=== PATIENT | female | born 1960 | race Caucasian/White ===

== ENCOUNTER 2017-06-04 12:14 | Emergency (ER) | payer BC ==
[~2017-06-04 12:14] MED LIST: CIPRO500 MG PO; DELZICOL400 MG PO; FERROUS SULFAT324 M1 PO; FLAGYL500 MG PO; MULTIPLE VITAMIN PO; PREDNISONE20 MG PO; TYLENOL325 MG PO; ZYRTEC ALLERGY10 M1 PO
--- NOTE | 2017-06-04 14:29 | DIAGNOSTIC IMAGING REPORT ---
PROCEDURE: CT ABD/PELVIS WITH CONTRAST INDICATION: Abdominal pain. Possible hematochezia. The patient on Coumadin (unknown reason). History of ulcerative colitis, appendectomy, and tubal ligation. TECHNIQUE: 125 ml of Isovue 300 were injected intravenously and axial images were obtained of the entire abdomen and pelvis with sagittal and coronal reformations. COMPARISON: Compared CT abdomen pelvis on 01/19/2016. FINDINGS: ABDOMEN: There is mild to moderate increased fluid throughout the colon without wall thickening. There are ingested pill fragments in the stomach, small bowel, and cecum. Small bowel pattern is normal. There is a punctate 1 mm gallstone. Liver, spleen, pancreas, kidneys, and aorta (mild calcified atheromatous changes), are normal. There is mild to moderate degenerate changes of the lower lumbar spine. PELVIS: Uterus and adnexal structures are normal. No evidence of free fluid. ORIF of left proximal femur fracture (metal hardware). IMPRESSION: 1. Mild to moderate fluid throughout the colon with minimal mucosal thickening. Consider infectious or idiopathic colitis. 2. Status post ORIF left femur fracture. 3. There is a punctate 1 mm calcified gallstone. 4. Otherwise negative CT abdomen and pelvis. 5. Findings discussed with SURESH Hughes. All CT scans at this facility use dose modulation, iterative reconstruction, and/or weight-based dosing when appropriate to reduce radiation dose to as low as reasonably achievable.
--- NOTE | 2017-06-04 14:53 | ED CLINICAL REPORT ---
Clinical Report - Physicians/Mid Levels [facility] [address] [place] [address] 06/04/2017 12:15 Patient: ZOILA LARKIN Time Seen: 1220; upon arrival, initial patient contact, initial documentation, patient care assumed. Arrived- By private vehicle. Historian- patient. HISTORY OF PRESENT ILLNESS Chief Complaint: ABDOMINAL PAIN. At its maximum, severity described as severe. When seen in the E.D., severity described as severe. Modifying factors. Not worsened by anything. Not relieved by anything. This started about 3 days ago and is still present. It was abrupt in onset and has been constant. It is described as "pain" and it is described as located in the right upper quadrant and in the upper abdomen. No nausea, loss of appetite, vomiting or diarrhea. No recent travel. Similar symptoms previously: None. ( says the pain is different than when she has colitis flare up, those pains are usually lower in the abdomen and this is up high). Recent medical care: Not recently seen/assessed. REVIEW OF SYSTEMS No constipation, black stools, hematemesis, difficulty with urination or pain with urination. No urinary frequency, bloody stools, fever, chest pain or difficulty breathing. today's bowel movement was darker than normal and she thought it may be blood, not sticky, soft and runny. All systems otherwise negative, except as recorded above. PAST HISTORY See nurses notes. PROBLEMS: Asthma. Ulcerative Colitis. UTI - Urinary Tract Infection. Colitis. --12:29 Nalini Rodriguez R.N. ADDITIONAL SURGERIES: Appendectomy. Fracture Repair. Tonsillectomy. Tubal Ligation. --12:29 Nalini Rodriguez R.N. Deep venous thrombosis. Pulmonary embolism. SOCIAL HISTORY Former smoker. No alcohol use or drug use. No recent travel. Is a local resident. FAMILY HISTORY Negative. ADDITIONAL NOTES The nursing notes have been reviewed with agreement regarding the chief complaint, HPI, ROS, PMH and patient medications and allergies. PHYSICAL EXAM Vital Signs: 06/04/2017 12:15 BP: 115/76. HR: 140. RR: 18. O2 saturation: 99%. Temp: 97.8 F. Pain level now: 05/23. Have been reviewed as abnormal and appear to be correct. Blood pressure normal. Tachycardic. Respiratory rate normal. Temperature normal. Oxygen saturation normal. Appearance: Alert. Oriented X3. No acute distress. Eyes: Pupils equal, round and reactive to light. Eyes normal inspection. Neck: Normal inspection. Neck supple. CVS: Heart rate / rhythm abnormal. Tachycardia (ventricular rate = 136). Heart sounds normal. Pulses normal. Respiratory: No respiratory distress. Breath sounds normal. Chest nontender. Abdomen: Soft. Moderate tenderness in the right upper quadrant. Positive Huitron's sign. No guarding, rebound tenderness or obturator or psoas sign present. Bowel sounds normal. No organomegaly. No mass. Tenderness present. Back: Normal inspection. Rectal: Abnormal rectal exam. Rectal exam nontender. Stool heme negative; hemoccult research associate quality control qc check passed. (POC test reference range: negative). (external hemorrhoids, small, nonthrombosed, no bleeding, nurses in room during rectal exam for chaperones). Skin: Skin warm and dry. Normal skin color. No rash. Normal skin turgor. Extremities: No lower extremity edema. Neuro: Oriented X 3. No motor deficit. No sensory deficit. LABS, X-RAYS, AND EKG Abdominal CT: . IMPRESSION: 1. Mild to moderate fluid throughout the colon with minimal mucosal thickening. Consider infectious or idiopathic colitis. 2. Status post ORIF left femur fracture. 3. There is a punctate 1 mm calcified gallstone. 4. Otherwise negative CT abdomen and pelvis. 5. Findings discussed with SURESH Hughes. All CT scans at this facility use dose modulation, iterative reconstruction, and/or weight-based dosing when appropriate to reduce radiation dose to as low as reasonably achievable. Electronically Final signed by:Kimani Chance MD 06/04/2017 2:22:45 PM. The study was interpreted by the radiologist and discussed with the radiologist. Laboratory Tests: CBC w Diff: (BENNETT: 06/04/2017 12:35) ( MsgRcvd 06/04/2017 12:56) Final results Test Result Flag Units (Reference) WHITE BLOOD COUNT 11.2 K/uL (4.5-11.5) RED BLOOD COUNT 3.92 L M/uL (4.00-5.20) HEMOGLOBIN 11.9 L gm/dL (12.0-16.0) HEMATOCRIT 35.0 L % (36.0-46.0) MEAN CELL VOLUME 89 fL (80-100) MEAN CORPUSCULAR HGB 30 pg (26-34) MEAN CORPUSCULAR HGB CONC 34 g/dL (31-37) RED CELL DISTRIBUTION WIDTH 16.0 H % (11.6-14.8) PLATELET COUNT 251 K/uL (150-400) NEUTROPHIL % 77.5 H % (50-75) LYMPH % 14.5 L % (25-40) MONO % 6.9 % (3-14) EOSINOPHIL % 0.9 % (0-4) BASOPHIL % 0.2 % (0-2) PT with INR: (BENNETT: 06/04/2017 12:35) ( [facility] 06/04/2017 13:19) Final results Test Result Flag Units (Reference) INR 8.3 *H (0.8-1.2) CRITICAL RESULTS CALLEDCalled to [place] 06/04/17 1316Were 2 patient identifiers used? YWas the result read back? YLow Intensity Therapy: INR 1.5-2.0 PT range 18.5-23.1Mod.Intensity Therapy: INR 2.0-3.0 PT range 23.1-31.5High Intensity Therapy: INR 2.5-3.5 PT range 27.4-35.5High Intensity Therapy 2: INR 3.0-4.0 PT range 31.5-39.3 APTT 150 *H SECONDS (24-34) CRITICAL RESULTS CALLEDCalled to [place] 06/04/17 1317Were 2 patient identifiers used? YWas the result read back? Y CMP: (BENNETT: 06/04/2017 12:35) ( [facility] 06/04/2017 13:16) Final results Test Result Flag Units (Reference) GLUCOSE 130 H mg/dL (70-110) BUN 19 H mg/dL (7-18) CREATININE 0.8 mg/dL (0.6-1.3) Estimated GFR >60 mL/min Estimated GFR- >60 mL/min Note: Persistent reduction over 3 months in eGFR<60 mL/min/1.73 m2 defines CKD. Patients with eGFR values>=60 mL/min/1.73 m2 may also have CKD if evidence ofpersistent proteinuria. Additional information may be foundat [email or web address]. SODIUM 136 mmol/L (136-145) POTASSIUM 4.0 mmol/L (3.5-5.1) CHLORIDE 103 mmol/L (98-107) CARBON DIOXIDE 21 mmol/L (21-32) CALCIUM 8.7 mg/dL (8.5-10.1) TOTAL PROTEIN 7.9 g/dL (6.4-8.2) ALBUMIN 3.4 g/dL (3.3-5.0) BILIRUBIN, TOTAL 0.4 mg/dL (0.0-1.0) ALKALINE PHOSPHATASE 137 H U/L (46-116) AST (SGOT) 18 U/L (15-37) ALT (SGPT) 34 U/L (12-78) LIPASE 155 U/L (73-393) AMYLASE 48 U/L (25-115) . PROGRESS AND PROCEDURES Course of Care: 1400. pt at ct 1430. tx options discussed, pt advised to stop coumadin and f/u with pcp tuesday, diet with gallstones, avoid. 06/04/2017 13:20 BP: 130/60. HR: 110. RR: 18. O2 saturation: 98%. Pain level now: 0/10. Vital Signs: have been reviewed as abnormal and appear to be correct. Blood pressure normal. Tachycardic. Respiratory rate normal. Temperature normal. Patient and friend counseled in person regarding the patient's stable condition, test results and diagnosis. 1430. Differential Diagnosis: I considered gastritis, gastroenteritis, peptic ulcer disease, gastroesophageal reflux disease, acute appendicitis, mesenteric lymphadenitis, diverticulitis, colon cancer, ulcerative colitis, Crohn's disease, bowel ischemia, bowel perforation, functional bowel problems, obstipation, biliary colic, cholecystitis, cholelithiasis, hepatitis, pancreatitis, common bile duct obstruction, splenic rupture and viral syndrome as a possible cause of abdominal pain in this patient. This is a partial list of diagnoses considered. Above considerations are based on history, physical exam, reassessment, laboratory data and other information. Differential diagnosis was discussed with patient. Disposition: Discharged home in good and improved condition (14:53). Condition: good and stable. CLINICAL IMPRESSION Cholelithiasis. No obstruction or cholecystitis. Acute right upper quadrant abdominal pain. Acute ulcerative colitis. INSTRUCTIONS (Stop Coumadin, as discussed). Warnings: GENERAL WARNINGS: Return or contact your physician immediately if your condition worsens or changes unexpectedly, if not improving as expected, or if other problems arise. SPECIFICALLY, return if you develop pain in the abdomen or pelvis, fever, blood in vomitus, blood in diarrhea, fainting or lightheadedness. Prescription Medications: Carafate 1 gm tablets: take 1 orally four times daily (1 hour before meals and at bedtime). Dispense sixty (60). No refills. Substitution is permissible. Ultram 50 mg tablets: take 1-2 orally every 6 hours as needed for pain. Dispense twenty (20). No refills. Substitution is permissible. Follow-up: Follow up with your doctor Tuesday even if well. Call for an appointment. Summary of care provided to patient. Understanding of the discharge instructions verbalized by patient. (Electronically signed by Dyan Garcia A.R.N.P. 06/04/2017 17:10)
--- NOTE | 2017-06-04 14:53 | ED CLINICAL REPORT ---
Clinical Report - Physicians/Mid Levels [facility] [address] [place] [address] 06/04/2017 12:15 Patient: ZOILA LARKIN Time Seen: 1220; upon arrival, initial patient contact, initial documentation, patient care assumed. Arrived- By private vehicle. Historian- patient. HISTORY OF PRESENT ILLNESS Chief Complaint: ABDOMINAL PAIN. At its maximum, severity described as severe. When seen in the E.D., severity described as severe. Modifying factors. Not worsened by anything. Not relieved by anything. This started about 3 days ago and is still present. It was abrupt in onset and has been constant. It is described as "pain" and it is described as located in the right upper quadrant and in the upper abdomen. No nausea, loss of appetite, vomiting or diarrhea. No recent travel. Similar symptoms previously: None. ( says the pain is different than when she has colitis flare up, those pains are usually lower in the abdomen and this is up high). Recent medical care: Not recently seen/assessed. REVIEW OF SYSTEMS No constipation, black stools, hematemesis, difficulty with urination or pain with urination. No urinary frequency, bloody stools, fever, chest pain or difficulty breathing. today's bowel movement was darker than normal and she thought it may be blood, not sticky, soft and runny. All systems otherwise negative, except as recorded above. PAST HISTORY See nurses notes. PROBLEMS: Asthma. Ulcerative Colitis. UTI - Urinary Tract Infection. Colitis. --12:29 Nalini Rodriguez R.N. ADDITIONAL SURGERIES: Appendectomy. Fracture Repair. Tonsillectomy. Tubal Ligation. --12:29 Nalini Rodriguez R.N. Deep venous thrombosis. Pulmonary embolism. SOCIAL HISTORY Former smoker. No alcohol use or drug use. No recent travel. Is a local resident. FAMILY HISTORY Negative. ADDITIONAL NOTES The nursing notes have been reviewed with agreement regarding the chief complaint, HPI, ROS, PMH and patient medications and allergies. PHYSICAL EXAM Vital Signs: 06/04/2017 12:15 BP: 115/76. HR: 140. RR: 18. O2 saturation: 99%. Temp: 97.8 F. Pain level now: 05/23. Have been reviewed as abnormal and appear to be correct. Blood pressure normal. Tachycardic. Respiratory rate normal. Temperature normal. Oxygen saturation normal. Appearance: Alert. Oriented X3. No acute distress. Eyes: Pupils equal, round and reactive to light. Eyes normal inspection. Neck: Normal inspection. Neck supple. CVS: Heart rate / rhythm abnormal. Tachycardia (ventricular rate = 136). Heart sounds normal. Pulses normal. Respiratory: No respiratory distress. Breath sounds normal. Chest nontender. Abdomen: Soft. Moderate tenderness in the right upper quadrant. Positive Huitron's sign. No guarding, rebound tenderness or obturator or psoas sign present. Bowel sounds normal. No organomegaly. No mass. Tenderness present. Back: Normal inspection. Rectal: Abnormal rectal exam. Rectal exam nontender. Stool heme negative; hemoccult quality assurance analyst check passed. (POC test reference range: negative). (external hemorrhoids, small, nonthrombosed, no bleeding, nurses in room during rectal exam for chaperones). Skin: Skin warm and dry. Normal skin color. No rash. Normal skin turgor. Extremities: No lower extremity edema. Neuro: Oriented X 3. No motor deficit. No sensory deficit. LABS, X-RAYS, AND EKG Abdominal CT: . IMPRESSION: 1. Mild to moderate fluid throughout the colon with minimal mucosal thickening. Consider infectious or idiopathic colitis. 2. Status post ORIF left femur fracture. 3. There is a punctate 1 mm calcified gallstone. 4. Otherwise negative CT abdomen and pelvis. 5. Findings discussed with SURESH Hughes. All CT scans at this facility use dose modulation, iterative reconstruction, and/or weight-based dosing when appropriate to reduce radiation dose to as low as reasonably achievable. Electronically Final signed by:Kimani Chance MD 06/04/2017 2:22:45 PM. The study was interpreted by the radiologist and discussed with the radiologist. Laboratory Tests: CBC w Diff: (BENNETT: 06/04/2017 12:35) ( MsgRcvd 06/04/2017 12:56) Final results Test Result Flag Units (Reference) WHITE BLOOD COUNT 11.2 K/uL (4.5-11.5) RED BLOOD COUNT 3.92 L M/uL (4.00-5.20) HEMOGLOBIN 11.9 L gm/dL (12.0-16.0) HEMATOCRIT 35.0 L % (36.0-46.0) MEAN CELL VOLUME 89 fL (80-100) MEAN CORPUSCULAR HGB 30 pg (26-34) MEAN CORPUSCULAR HGB CONC 34 g/dL (31-37) RED CELL DISTRIBUTION WIDTH 16.0 H % (11.6-14.8) PLATELET COUNT 251 K/uL (150-400) NEUTROPHIL % 77.5 H % (50-75) LYMPH % 14.5 L % (25-40) MONO % 6.9 % (3-14) EOSINOPHIL % 0.9 % (0-4) BASOPHIL % 0.2 % (0-2) PT with INR: (BENNETT: 06/04/2017 12:35) ( [facility] 06/04/2017 13:19) Final results Test Result Flag Units (Reference) INR 8.3 *H (0.8-1.2) CRITICAL RESULTS CALLEDCalled to [place] 06/04/17 1316Were 2 patient identifiers used? YWas the result read back? YLow Intensity Therapy: INR 1.5-2.0 PT range 18.5-23.1Mod.Intensity Therapy: INR 2.0-3.0 PT range 23.1-31.5High Intensity Therapy: INR 2.5-3.5 PT range 27.4-35.5High Intensity Therapy 2: INR 3.0-4.0 PT range 31.5-39.3 APTT 150 *H SECONDS (24-34) CRITICAL RESULTS CALLEDCalled to HICKORY RIDGE 06/04/17 1317Were 2 patient identifiers used? YWas the result read back? Y CMP: (BENNETT: 06/04/2017 12:35) ( [facility] 06/04/2017 13:16) Final results Test Result Flag Units (Reference) GLUCOSE 130 H mg/dL (70-110) BUN 19 H mg/dL (7-18) CREATININE 0.8 mg/dL (0.6-1.3) Estimated GFR >60 mL/min Estimated GFR- >60 mL/min Note: Persistent reduction over 3 months in eGFR<60 mL/min/1.73 m2 defines CKD. Patients with eGFR values>=60 mL/min/1.73 m2 may also have CKD if evidence ofpersistent proteinuria. Additional information may be foundat [email or web address]. SODIUM 136 mmol/L (136-145) POTASSIUM 4.0 mmol/L (3.5-5.1) CHLORIDE 103 mmol/L (98-107) CARBON DIOXIDE 21 mmol/L (21-32) CALCIUM 8.7 mg/dL (8.5-10.1) TOTAL PROTEIN 7.9 g/dL (6.4-8.2) ALBUMIN 3.4 g/dL (3.3-5.0) BILIRUBIN, TOTAL 0.4 mg/dL (0.0-1.0) ALKALINE PHOSPHATASE 137 H U/L (46-116) AST (SGOT) 18 U/L (15-37) ALT (SGPT) 34 U/L (12-78) LIPASE 155 U/L (73-393) AMYLASE 48 U/L (25-115) . PROGRESS AND PROCEDURES Course of Care: 1400. pt at ct 1430. tx options discussed, pt advised to stop coumadin and f/u with pcp tuesday, diet with gallstones, avoid. 06/04/2017 13:20 BP: 130/60. HR: 110. RR: 18. O2 saturation: 98%. Pain level now: 0/10. Vital Signs: have been reviewed as abnormal and appear to be correct. Blood pressure normal. Tachycardic. Respiratory rate normal. Temperature normal. Patient and friend counseled in person regarding the patient's stable condition, test results and diagnosis. 1430. Differential Diagnosis: I considered gastritis, gastroenteritis, peptic ulcer disease, gastroesophageal reflux disease, acute appendicitis, mesenteric lymphadenitis, diverticulitis, colon cancer, ulcerative colitis, Crohn's disease, bowel ischemia, bowel perforation, functional bowel problems, obstipation, biliary colic, cholecystitis, cholelithiasis, hepatitis, pancreatitis, common bile duct obstruction, splenic rupture and viral syndrome as a possible cause of abdominal pain in this patient. This is a partial list of diagnoses considered. Above considerations are based on history, physical exam, reassessment, laboratory data and other information. Differential diagnosis was discussed with patient. Disposition: Discharged home in good and improved condition (14:53). Condition: good and stable. CLINICAL IMPRESSION Cholelithiasis. No obstruction or cholecystitis. Acute right upper quadrant abdominal pain. Acute ulcerative colitis. INSTRUCTIONS (Stop Coumadin, as discussed). Warnings: GENERAL WARNINGS: Return or contact your physician immediately if your condition worsens or changes unexpectedly, if not improving as expected, or if other problems arise. SPECIFICALLY, return if you develop pain in the abdomen or pelvis, fever, blood in vomitus, blood in diarrhea, fainting or lightheadedness. Prescription Medications: Carafate 1 gm tablets: take 1 orally four times daily (1 hour before meals and at bedtime). Dispense sixty (60). No refills. Substitution is permissible. Ultram 50 mg tablets: take 1-2 orally every 6 hours as needed for pain. Dispense twenty (20). No refills. Substitution is permissible. Follow-up: Follow up with your doctor Tuesday even if well. Call for an appointment. Summary of care provided to patient. Understanding of the discharge instructions verbalized by patient. (Electronically signed by Dyan Garcia A.R.N.P. 06/04/2017 17:10)
--- NOTE | 2017-06-04 14:54 | ED NURSING NOTES ---
Clinical Report - Nurses [facility] [address] [place] [address] 06/04/2017 12:15 Patient: ZOILA LARKIN TRIAGE Triage time 1215. Acuity: LEVEL 3. Chief Complaint: ABDOMINAL PAIN and (low midline abd pain). --12:37 Nalini Rodriguez R.N. 12:15 06/04/17. BP: 115/76. HR: 140. RR: 18. O2 saturation: 99%. Temp: 97.8 F. Pain level now: 05/23. Additional comments: BP sitting 115/76. standing 115/72 Pulse 140 sitting, 153 standing . --12:37 Nalini Rodriguez R.N. Weight: 68 kg stated. Height/Length: 68 inches Per Patient. BMI: 22.8. --12:26 Nalini Rodriguez R.N. Medications Vitamins/Minerals Oral. Zyrtec daily 10mg , daily. --12:32 Nalini Rodriguez R.N. Warfarin Sodium Oral (Tablet 5 mg) 2 tablets, daily. --12:33 Nalini Rodriguez R.N. Lialda 1.2g 4 tabs daily. --12:35 Nalini Rodriguez R.N. Dicyclomine 10mg TID . --12:36 Nalini Rodriguez R.N. tylenol 650mg q 6 hrs . --12:37 Nalini Rodriguez R.N. Albuterol 2 puffs TID . --12:37 Nalini Rodriguez R.N. Allergies Gluten. Sulfa Antibiotics. --12:32 Nalini Rodriguez R.N. History Arrived by private vehicle. Historian: patient. Accompanied by friend. [facility] physician ([facility] Onset. (x3 of abd pain, having dark stool today --hx of ulcerative colitis). She has had abdominal pain. No vomiting or diarrhea. SOCIAL HX: Former smoker (was a 1ppd for 40 years). --12:37 Nalini Rodriguez R.N. PROBLEMS: Asthma. Ulcerative Colitis. UTI - Urinary Tract Infection. Colitis. --12:29 Nalini Rodriguez R.N. DVT - Deep Venous Thrombosis. PE. --14:39 Adalgisa Yung. ADDITIONAL SURGERIES: Appendectomy. Fracture Repair. Tonsillectomy. Tubal Ligation. --12:29 Nalini Rodriguez R.N. Interventions ID band on patient. To treatment room. --12:37 Nalini Rodriguez R.N. PHYSICAL ASSESSMENT 12:15. Ambulatory to room. Patient gowned. GENERAL / NEURO / PSYCH: Alert. Oriented X 4. Appears anxious. RESPIRATORY: Respirations not labored. CVS: Capillary refill less than 2 seconds. GI / : Abdominal tenderness. SKIN: Skin is warm and dry. --12:31 Nalini Rodriguez R.N. NURSING PROGRESS NOTES 12:15. Patient gowned. Head of bed elevated. Reassurance given. Patient identifiers checked. Call light placed in reach. Side rails up. Bed placed in lowest position. Patient ready for evaluation- chart flagged. --12:30 Nalini Rodriguez R.N. 12:30 06/04/2017 Site #1 started via IV in the left antecubital space with an 20g angiocath, with aseptic technique and good blood return; one attempt. Blood drawn: rainbow set. Labeled in the presence of the patient and sent to the lab. Saline lock flushed with 10 mL saline (by TERRELL Perez). --12:39 Nalini Rodriguez R.N. 13:20 06/04/17. BP: 130/60. HR: 110. RR: 18. O2 saturation: 98% on room air. Temp: deferred. Pain level now: 0/10. Additional comments: In no distress, states that she is now pain free . --13:31 Nalini Rodriguez R.N. 12:35 06/04/2017 Started bag #1 1000 mL IV Fluids IV NS (Saline); at 1000 mL/hr over 1 hour(s) via site #1 via IV pump. IV patency established. IV site checked: no pain, redness, or swelling. IV flushed thoroughly pre- and post-medication administration. --14:04 Nalini Rordiguez R.N. 12:36 06/04/2017 Zofran (Ondansetron HCl) IVP 4 mg given over 1 minute(s) via site #1. IV patency established. IV site checked: no pain, redness, or swelling. IV flushed thoroughly pre- and post-medication administration. IVP given by RN. --14:04 Nalini Rodriguez R.N. 12:38 06/04/2017 Toradol IVP 30 mg given over 1 minute(s) via site #1. IV patency established. IV site checked: no pain, redness, or swelling. IV flushed thoroughly pre- and post-medication administration. IVP given by RN. --14:05 Nalini Rodriguez R.N. 12:38 06/04/17. Underground Miner provided for the rectal exam by the physician. ( quiac negative per ERNP). --12:38 Nalini Rodriguez R.N. 13:19 06/04/17. Critical value relayed to ED by tammy Mercado. Critical value received by NOEMI Javier. INR 8.3. PTT: 150. Critical value read back. Verified lab result and patient ID. DIGITAL MARKETER notifed of critical value. --13:20 Concepcion Hansen R.N. 14:00. Patient transported to CT by stretcher with tech. --14:06 Nalini Rodriguez R.N. 14:10. Patient returned from CT by stretcher with tech. --14:39 Adalgisa Yung 14:20 06/04/2017 IV Fluids IV NS Discontinued: bag #1 infused. Total amount infused: 1000 mL. IV patency established. IV site checked: no pain, redness, or swelling. IV flushed thoroughly. --14:40 Adalgisa Yung 14:32 06/04/2017 Vit K (Vitamin K1) Subcutaneous 10 mg given. Given in the right upper arm and left upper arm (split dose). --14:38 Adalgisa Yung 14:35 06/04/2017 Site #1 removed upon discharge. Bandaid applied. --14:41 Nalini Rodriguez R.N. 14:35 06/04/2017 IV Saline Lock Drip IV Discontinued. Total amount infused: 0 mL. IV patency established. IV site checked: no pain, redness, or swelling. IV flushed thoroughly. --14:41 Nalini Rodriguez R.N. 14:20 EDNP in to talk with pt at length about findings and follow up. --15:29 Nalini Rodriguez R.N. DISPOSITION / DISCHARGE 15:00. Condition at departure: improved and stable. No learning barriers present. Discharge instructions provided and reviewed with piling setter and the patient. Reviewed medication(s) (stop coumadin,carafate, ultram). Patient and piling setter verbalized understanding. Written instructions provided in Italian. The patient was discharged home and accompanied by piling setter. She left the Emergency Department in a wheelchair and via private vehicle. Contract Preparer driving. --15:28 Nalini Rodriguez R.N. 14:42 06/04/17. BP: 134/64. HR: 100. RR: 18. O2 saturation: 97% on room air. Temp: deferred. Pain level now: 0/10. --15:28 Nalini Rodriguez R.N. 15:00. HERRERA COMA SCORE: [place] Coma Scale: 15- eyes open spontaneously (4); best verbal response- oriented x 4 (5); best motor response- obeys commands (6). --15:30 Nalini Rodriguez R.N. Locked/Released at 06/04/2017 15:31 by Nalini Rodriguez R.N.
--- NOTE | 2017-06-04 14:54 | ED ORDER SUMMARY ---
..... Patient: ZOILA LARKIN OrderSheet [facility] VisitID: [id number] [address] [place] [address] 57y, F Registration Date/Time: 06/04/2017 ORDER SHEET Weight: 68.0 kg (stated) Allergies: Gluten, Sulfa Antibiotics GENERAL ORDERS: CT Abd/Pel w Cont (No) (pending) Urgent (12:38 06/04/2017 HBivens A.R.N.P.) (Ack 12:52 PWeiler ER Tech1) (14:19 JSimbeck R.N.) CBC w Diff Urgent (12:38 06/04/2017 HBivens A.R.N.P.) (Ack 12:52 PWeiler ER Tech1) (13:34 PWeiler ER Tech1) CMP Urgent (12:38 06/04/2017 HBivens A.R.N.P.) (Ack 12:52 PWeiler ER Tech1) (13:34 PWeiler ER Tech1) UA-Culture if indicated Urgent (12:38 06/04/2017 HBivens A.R.N.P.) (Ack 12:52 PWeiler ER Tech1) (Cancelled: Unable to [id number]:31 DDean R.N.) Amylase Urgent (12:38 06/04/2017 HBivens A.R.N.P.) (Ack 12:52 PWeiler ER Tech1) (13:34 PWeiler ER Tech1) Lipase Urgent (12:38 06/04/2017 HBivens A.R.N.P.) (Ack 12:52 PWeiler ER Tech1) (13:34 PWeiler ER Tech1) PT with INR Urgent (12:38 06/04/2017 HBivens A.R.N.P.) (Ack 12:52 PWeiler ER Tech1) (13:34 PWeiler ER Tech1) PTT Urgent (12:38 06/04/2017 HBivens A.R.N.P.) (Ack 12:52 PWeiler ER Tech1) (13:34 PWeiler ER Tech1) MEDICATION ORDERS: Vit K Subcut 10 mg (NOW) (14:10 06/04/2017 HBivens A.R.N.P.) (14:38 [place]) IV FLUIDS: IV NS : initial bolus 1000 mL (1000 mL/hr), then none - (NOW) (12:38 06/04/2017 HBivens A.R.N.P.) (Ack 12:40 DDean R.N.) (14:04 DDean R.N.) Zofran IV 4 mg (NOW) (12:38 06/04/2017 HBivens A.R.N.P.) (Ack 12:39 DDean R.N.) (14:04 DDean R.N.) Toradol IV 30 mg (NOW) (12:06/04/2017 HBivens A.R.N.P.) (Ack 12:39 DDean R.N.) (14:05 DDean R.N.) IV Saline Lock (12:06/04/2017 HBivens A.R.N.P.) (12:39 DDean R.N.) ORDER SHEET NOTES: [Electronically signed by Nalini Rodriguez R.N. (15:06/04/2017)] [Electronically signed by Dyan Garcia.R.N.P. (17:06/04/2017)] [Electronically locked/signed by Nalini Rodriguez R.N. (15:06/04/2017)]
--- NOTE | 2017-06-04 14:54 | ED NURSING NOTES ---
Clinical Report - Nurses [facility] [address] [place] [address] 06/04/2017 12:15 Patient: ZOILA LARKIN TRIAGE Triage time 1215. Acuity: LEVEL 3. Chief Complaint: ABDOMINAL PAIN and (low midline abd pain). --12:37 Nalini Rodriguez R.N. 12:15 06/04/17. BP: 115/76. HR: 140. RR: 18. O2 saturation: 99%. Temp: 97.8 F. Pain level now: 05/23. Additional comments: BP sitting 115/76. standing 115/72 Pulse 140 sitting, 153 standing . --12:37 Nalini Rodriguez R.N. Weight: 68 kg stated. Height/Length: 68 inches Per Patient. BMI: 22.8. --12:26 Nalini Rodriguez R.N. Medications Vitamins/Minerals Oral. Zyrtec daily 10mg , daily. --12:32 Nalini Rodriguez R.N. Warfarin Sodium Oral (Tablet 5 mg) 2 tablets, daily. --12:33 Nalini Rodriguez R.N. Lialda 1.2g 4 tabs daily. --12:35 Nalini Rodriguez R.N. Dicyclomine 10mg TID . --12:36 Nalini Rodriguez R.N. tylenol 650mg q 6 hrs . --12:37 Nalini Rodriguez R.N. Albuterol 2 puffs TID . --12:37 Nalini Rodriguez R.N. Allergies Gluten. Sulfa Antibiotics. --12:32 Nalini Rodriguez R.N. History Arrived by private vehicle. Historian: patient. Accompanied by friend. Primary physician ([facility] Onset. (x3 of abd pain, having dark stool today --hx of ulcerative colitis). She has had abdominal pain. No vomiting or diarrhea. SOCIAL HX: Former smoker (was a 1ppd for 40 years). --12:37 Nalini Rodriguez R.N. PROBLEMS: Asthma. Ulcerative Colitis. UTI - Urinary Tract Infection. Colitis. --12:29 Nalini Rodriguez R.N. DVT - Deep Venous Thrombosis. PE. --14:39 Adalgisa Yung. ADDITIONAL SURGERIES: Appendectomy. Fracture Repair. Tonsillectomy. Tubal Ligation. --12:29 Nalini Rodriguez R.N. Interventions ID band on patient. To treatment room. --12:37 Nalini Rodriguez R.N. PHYSICAL ASSESSMENT 12:15. Ambulatory to room. Patient gowned. GENERAL / NEURO / PSYCH: Alert. Oriented X 4. Appears anxious. RESPIRATORY: Respirations not labored. CVS: Capillary refill less than 2 seconds. GI / : Abdominal tenderness. SKIN: Skin is warm and dry. --12:31 Nalini Rodriguez R.N. NURSING PROGRESS NOTES 12:15. Patient gowned. Head of bed elevated. Reassurance given. Patient identifiers checked. Call light placed in reach. Side rails up. Bed placed in lowest position. Patient ready for evaluation- chart flagged. --12:30 Nalini Rodriguez R.N. 12:30 06/04/2017 Site #1 started via IV in the left antecubital space with an 20g angiocath, with aseptic technique and good blood return; one attempt. Blood drawn: rainbow set. Labeled in the presence of the patient and sent to the lab. Saline lock flushed with 10 mL saline (by TERRELL Perez). --12:39 Nalini Rodriguez R.N. 13:20 06/04/17. BP: 130/60. HR: 110. RR: 18. O2 saturation: 98% on room air. Temp: deferred. Pain level now: 0/10. Additional comments: In no distress, states that she is now pain free . --13:31 Nalini Rodriguez R.N. 12:35 06/04/2017 Started bag #1 1000 mL IV Fluids IV NS (Saline); at 1000 mL/hr over 1 hour(s) via site #1 via IV pump. IV patency established. IV site checked: no pain, redness, or swelling. IV flushed thoroughly pre- and post-medication administration. --14:04 Nalini Rodriguez R.N. 12:36 06/04/2017 Zofran (Ondansetron HCl) IVP 4 mg given over 1 minute(s) via site #1. IV patency established. IV site checked: no pain, redness, or swelling. IV flushed thoroughly pre- and post-medication administration. IVP given by RN. --14:04 Nalini Rodriguez R.N. 12:38 06/04/2017 Toradol IVP 30 mg given over 1 minute(s) via site #1. IV patency established. IV site checked: no pain, redness, or swelling. IV flushed thoroughly pre- and post-medication administration. IVP given by RN. --14:05 Nalini Rodriguez R.N. 12:38 06/04/17. Securities Analyst provided for the rectal exam by the physician. ( quiac negative per ERNP). --12:38 Nalini Rodriguez R.N. 13:19 06/04/17. Critical value relayed to ED by tammy Mercado. Critical value received by NOEMI Javier. INR 8.3. PTT: 150. Critical value read back. Verified lab result and patient ID. FRUIT PRESS OPERATOR notifed of critical value. --13:20 Concepcion Hansen R.N. 14:00. Patient transported to CT by stretcher with tech. --14:06 Nalini Rodriguez R.N. 14:10. Patient returned from CT by stretcher with tech. --14:39 Adalgisa Yung 14:20 06/04/2017 IV Fluids IV NS Discontinued: bag #1 infused. Total amount infused: 1000 mL. IV patency established. IV site checked: no pain, redness, or swelling. IV flushed thoroughly. --14:40 Adalgisa Yung 14:32 06/04/2017 Vit K (Vitamin K1) Subcutaneous 10 mg given. Given in the right upper arm and left upper arm (split dose). --14:38 Adalgisa Yung 14:35 06/04/2017 Site #1 removed upon discharge. Bandaid applied. --14:41 Nalini Rodriguez R.N. 14:35 06/04/2017 IV Saline Lock Drip IV Discontinued. Total amount infused: 0 mL. IV patency established. IV site checked: no pain, redness, or swelling. IV flushed thoroughly. --14:41 Nalini Rodriguez R.N. 14:20 EDNP in to talk with pt at length about findings and follow up. --15:29 Nalini Rodriguez R.N. DISPOSITION / DISCHARGE 15:00. Condition at departure: improved and stable. No learning barriers present. Discharge instructions provided and reviewed with veterans service officer and the patient. Reviewed medication(s) (stop coumadin,carafate, ultram). Patient and veterans service officer verbalized understanding. Written instructions provided in Kiswahili. The patient was discharged home and accompanied by veterans service officer. She left the Emergency Department in a wheelchair and via private vehicle. Supervisor [employer]ting [employer] Sew[employer] Room driving. --15:28 Nalini Rodriguez R.N. 14:42 06/04/17. BP: 134/64. HR: 100. RR: 18. O2 saturation: 97% on room air. Temp: deferred. Pain level now: 0/10. --15:28 Nalini Rodriguez R.N. 15:00. HERRERA COMA SCORE: [place] Coma Scale: 15- eyes open spontaneously (4); best verbal response- oriented x 4 (5); best motor response- obeys commands (6). --15:30 Nalini Rodriguez R.N. Locked/Released at 06/04/2017 15:31 by Nalini Rodriguez R.N.
--- NOTE | 2017-06-04 14:54 | ED ORDER SUMMARY ---
..... Patient: ZOILA LARKIN OrderSheet [facility] VisitID: [id number] [address] [place] [address] 57y, F Registration Date/Time: 06/04/2017 ORDER SHEET Weight: 68.0 kg (stated) Allergies: Gluten, Sulfa Antibiotics GENERAL ORDERS: CT Abd/Pel w Cont (No) (pending) Urgent (12:38 06/04/2017 HBivens A.R.N.P.) (Ack 12:52 PWeiler ER Tech1) (14:19 JSimbeck R.N.) CBC w Diff Urgent (12:38 06/04/2017 HBivens A.R.N.P.) (Ack 12:52 PWeiler ER Tech1) (13:34 PWeiler ER Tech1) CMP Urgent (12:38 06/04/2017 HBivens A.R.N.P.) (Ack 12:52 PWeiler ER Tech1) (13:34 PWeiler ER Tech1) UA-Culture if indicated Urgent (12:38 06/04/2017 HBivens A.R.N.P.) (Ack 12:52 PWeiler ER Tech1) (Cancelled: Unable to Snjegfn57:31 DDean R.N.) Amylase Urgent (12:38 06/04/2017 HBivens A.R.N.P.) (Ack 12:52 PWeiler ER Tech1) (13:34 PWeiler ER Tech1) Lipase Urgent (12:38 06/04/2017 HBivens A.R.N.P.) (Ack 12:52 PWeiler ER Tech1) (13:34 PWeiler ER Tech1) PT with INR Urgent (12:38 06/04/2017 HBivens A.R.N.P.) (Ack 12:52 PWeiler ER Tech1) (13:34 PWeiler ER Tech1) PTT Urgent (12:38 06/04/2017 HBivens A.R.N.P.) (Ack 12:52 PWeiler ER Tech1) (13:34 PWeiler ER Tech1) MEDICATION ORDERS: Vit K Subcut 10 mg (NOW) (14:10 06/04/2017 HBivens A.R.N.P.) (14:38 [place]) IV FLUIDS: IV NS : initial bolus 1000 mL (1000 mL/hr), then none - (NOW) (12:38 06/04/2017 HBivens A.R.N.P.) (Ack 12:40 DDean R.N.) (14:04 DDean R.N.) Zofran IV 4 mg (NOW) (12:38 06/04/2017 HBivens A.R.N.P.) (Ack 12:39 DDean R.N.) (14:04 DDean R.N.) Toradol IV 30 mg (NOW) (12:06/04/2017 HBivens A.R.N.P.) (Ack 12:39 DDean R.N.) (14:05 DDean R.N.) IV Saline Lock (12:06/04/2017 HBivens A.R.N.P.) (12:39 DDean R.N.) ORDER SHEET NOTES: [Electronically signed by Nalini Rodriguez R.N. (15:06/04/2017)] [Electronically signed by Dyan Garcia.R.N.P. (17:06/04/2017)] [Electronically locked/signed by Nalini Rodriguez R.N. (15:06/04/2017)]
--- NOTE | 2017-06-04 17:11 | ED DISCHARGE INSTRUCTIONS ---
Patient: ZOILA LARKIN General Instructions Merged With [facility] VisitID: [id number] [place] [address] 57y, F Registration Date/Time: 06/04/2017 Cholelithiasis. No obstruction or cholecystitis. Acute right upper quadrant abdominal pain. Acute ulcerative colitis. INSTRUCTIONS (Stop Coumadin, as discussed). Warnings: GENERAL WARNINGS: Return or contact your physician immediately if your condition worsens or changes unexpectedly, if not improving as expected, or if other problems arise. SPECIFICALLY, return if you develop pain in the abdomen or pelvis, fever, blood in vomitus, blood in diarrhea, fainting or lightheadedness. Prescription Medications: Carafate 1 gm tablets: take 1 orally four times daily (1 hour before meals and at bedtime). Dispense sixty (60). No refills. Substitution is permissible. Ultram 50 mg tablets: take 1-2 orally every 6 hours as needed for pain. Dispense twenty (20). No refills. Substitution is permissible. Follow-up: Follow up with your doctor Tuesday even if well. Call for an appointment. Summary of care provided to patient. Understanding of the discharge instructions verbalized by patient. ADDITIONAL INFORMATION Abdominal Pain, Unknown Cause (Female) The exact cause of your abdominal (stomach) pain is not certain. This does not mean that this is something to worry about, or the right tests were not done. Everyone likes to know the exact cause of the problem, but sometimes with abdominal pain, there is no clear-cut cause, and this could be a good thing. The good news is that your symptoms can be treated, and you will feel better. Your condition does not seem serious now; however, sometimes the signs of a serious problem may take more time to appear. For this reason,it is important for you to watch for any new symptoms, problems,or worsening of your condition. Over the next few days, the abdominal pain may come and go, or be continuous. Other common symptoms can include nausea and vomiting. Sometimes it can be difficult to tell if you feel nauseous, you may just feel bad and not associate that feeling with nausea. Constipation, diarrhea, and a fever may go along with the pain. The pain may continue even if treated correctly over the following days. Depending on how things go, sometimes the cause can become clear and may require further or different treatment. Additional evaluations, medications, or tests may be needed. Home care Your health care provider may prescribe medications for pain, symptoms, or an infection. Follow the health care provider's instructions for taking these medications. General care Rest until your next exam. No strenuous activities. Try to find positions that ease discomfort. A small pillow placed on the abdomen may help relieve pain. Something warm on your abdomen (such as a heating pad) may help, but be careful not to burn yourself. Diet Do not force yourself to eat, especially if having cramps, vomiting, or diarrhea. Water is important so you do not get dehydrated. Soup may also be good. Sports drinks may also help, especially if they are not too acidic. Make sure you don't drink sugary drinks as this can make things worse. Take liquids in small amounts. Do not guzzle them. Caffeine sometimes makes the pain and cramping worse. Avoid dairy products if you have vomiting or diarrhea. Don't eat large amounts at a time. Wait a few minutes between bites. Eat a diet low in fiber (called a low-residue diet). Foods allowed include refined breads, white rice, fruit and vegetable juices without pulp, tender meats. These foods will pass more easily through the intestine. Avoid whole-grain foods, whole fruits and vegetables, meats, seeds and nuts, fried or fatty foods, dairy, alcohol and spicy foods until your symptoms go away. Follow-up care Follow up with your health care provider as instructed, or if your pain does not begin to improve in the next 24 hours. When to seek medical care Seek prompt medical care if any of the following occur: Pain gets worse or moves to the right lower abdomen New or worsening vomiting or diarrhea Swelling of the abdomen Unable to pass stool for more than three days Fever of 100.4F (38C) or higher, or as directed by your healthcare provider. Blood in vomit or bowel movements (dark red or black color) Jaundice (yellow color of eyes and skin) Weakness, dizziness Chest, arm, back, neck or jaw pain Unexpected vaginal bleeding or missed period Call 911 Call emergency services if any of the following occur: Trouble breathing Confusion Fainting or loss of consciousness Rapid heart rate Seizure GallstonesWith Biliary Colic [Confirmed Dx] The abdominal pain that you have today is due to spasm of the gallbladder. The gallbladder is a small sac under the liver which stores and releases bile. Bile is a fluid that aids in the digestion of fat. A gallstone may form inside the gallbladder and block the flow of bile fluid. This causes mild to severe crampy pain in the mid or right upper abdomen with nausea and vomiting. Home Care: Rest in bed and follow a clear liquid diet until feeling better. If pain or nausea medicine was given to help with your symptoms, take these as directed. Fat in your diet makes the gallbladder contract and may cause increased pain. Therefore, avoid fat in your diet over the next two days and follow a low-fat diet after that. If you are overweight, a low-fat diet will also help you lose weight. Follow Up with your doctor. There is a 50% chance that you will have another episode of pain from your gallstones during the next 2 years. Removal of the gallbladder is the treatment of choice to prevent this. Schedule an appointment with your own doctor during the next week to discuss the treatment options. Get Prompt Medical Attention if any of the following occur: Pain gets worse or moves to the right lower abdomen Repeated vomiting Swelling of the abdomen Pain lasts over 6 hours Fever of 100.4F (38C) or higher, or as directed by your healthcare provider Weakness, dizziness or fainting Dark urine or light colored stools Yellow color of the skin or eyes Chest, arm, back, neck or jaw pain Ulcerative Colitis You have been diagnosed with ulcerative colitis. Ulcerative colitis is inflammation that occurs in the rectum and colon. It is a form of Inflammatory Bowel Disease (IBD). No one knows what causes IBD, but the symptoms can be treated and people with IBD can lead full, active lives. Home Care: Follow the diet that was prescribed for you by your doctor. Avoid any foods that make your symptoms worse. These foods vary from person to person. Keep a diary of foods that disagree with you, and share this information with your doctor or entry level software engineer. Take your medications as directed. Follow Up with your doctor or as advised by our staff. Report any unintended weight loss over 10 pounds over 3-6 months to your doctor. Get Prompt Medical Attention if any of the following occur: Bleeding from your rectum Frequent diarrhea or abdominal pain not controlled by your medicine Bloody diarrhea Fever of 100.4F (38C) or higher, or as directed by your healthcare provider Persistent nausea or repeated vomiting Sucralfate Oral tablet What is this medicine? SUCRALFATE (GIOVANNY david fate) helps to treat ulcers of the intestine. How should I use this medicine? Take this medicine by mouth with a glass of water. Follow the directions on the prescription label. This medicine works best if you take it on an empty stomach, 1 hour before meals. Take your doses at regular intervals. Do not take your medicine more often than directed. Do not stop taking except on your doctor's advice. Talk to your bacteriology professor regarding the use of this medicine in children. Special care may be needed. What side effects may I notice from receiving this medicine? Side effects that you should report to your doctor or health director of health care marketing as soon as possible: allergic reactions like skin rash, itching or hives, swelling of the face, lips, or tongue difficulty breathing Side effects that usually do not require medical attention (report to your doctor or health director of health care marketing if they continue or are bothersome): back pain constipation drowsy, dizzy dry mouth headache stomach upset, gas trouble sleeping What may interact with this medicine? antacid cimetidine digoxin ketoconazole phenytoin quinidine ranitidine some antibiotics like ciprofloxacin, norfloxacin, and ofloxacin theophylline thyroid hormones warfarin What if I miss a dose? If you miss a dose, take it as soon as you can. If it is almost time for your next dose, take only that dose. Do not take double or extra doses. Where should I keep my medicine? Keep out of the reach of children. Store at room temperature between 15 and 30 degrees C (59 and 86 degrees F). Keep container tightly closed. Throw away any unused medicine after the expiration date. What should I tell my health care provider before I take this medicine? They need to know if you have any of these conditions: kidney disease an unusual or allergic reaction to sucralfate, other medicines, foods, dyes, or preservatives or trying to get breast-feeding What should I watch for while using this medicine? Visit your doctor or health director of health care marketing for regular check ups. Let your doctor know if your symptoms do not improve or if you feel worse. Antacids should not be taken within one half hour before or after this medicine. Tramadol Hydrochloride Oral tablet What is this medicine? TRAMADOL (TRA ma dole) is a pain reliever. It is used to treat moderate to severe pain in adults. How should I use this medicine? Take this medicine by mouth with a full glass of water. Follow the directions on the prescription label. If the medicine upsets your stomach, take it with food or milk. Do not take more medicine than you are told to take. Talk to your bacteriology professor regarding the use of this medicine in children. Special care may be needed. What side effects may I notice from receiving this medicine? Side effects that you should report to your doctor or health director of health care marketing as soon as possible: allergic reactions like skin rash, itching or hives, swelling of the face, lips, or tongue breathing difficulties, wheezing confusion itching light headedness or fainting spells redness, blistering, peeling or loosening of the skin, including inside the mouth seizures Side effects that usually do not require medical attention (report to your doctor or health director of health care marketing if they continue or are bothersome): constipation dizziness drowsiness headache nausea, vomiting What may interact with this medicine? Do not take this medicine with any of the following medications: MAOIs like Carbex, Eldepryl, Marplan, Nardil, and Parnate This medicine may also interact with the following medications: alcohol or medicines that contain alcohol antihistamines benzodiazepines bupropion carbamazepine or oxcarbazepine clozapine cyclobenzaprine digoxin furazolidone linezolid medicines for depression, anxiety, or psychotic disturbances medicines for migraine headache like almotriptan, eletriptan, frovatriptan, naratriptan, rizatriptan, sumatriptan, zolmitriptan medicines for pain like pentazocine, buprenorphine, butorphanol, meperidine, nalbuphine, and propoxyphene medicines for sleep muscle relaxants naltrexone phenobarbital phenothiazines like perphenazine, thioridazine, chlorpromazine, mesoridazine, fluphenazine, prochlorperazine, promazine, and trifluoperazine procarbazine warfarin What if I miss a dose? If you miss a dose, take it as soon as you can. If it is almost time for your next dose, take only that dose. Do not take double or extra doses. Where should I keep my medicine? Keep out of the reach of children. Store at room temperature between 15 and 30 degrees C (59 and 86 degrees F). Keep container tightly closed. Throw away any unused medicine after the expiration date. What should I tell my health care provider before I take this medicine? They need to know if you have any of these conditions: brain tumor depression drug abuse or addiction head injury if you frequently drink alcohol containing drinks kidney disease or trouble passing urine liver disease lung disease, asthma, or breathing problems seizures or epilepsy suicidal thoughts, plans, or attempt; a previous suicide attempt by you or a family member an unusual or allergic reaction to tramadol, codeine, other medicines, foods, dyes, or preservatives or trying to get breast-feeding What should I watch for while using this medicine? Tell your doctor or health director of health care marketing if your pain does not go away, if it gets worse, or if you have new or a different type of pain. You may develop tolerance to the medicine. Tolerance means that you will need a higher dose of the medicine for pain relief. Tolerance is normal and is expected if you take this medicine for a long time. Do not suddenly stop taking your medicine because you may develop a severe reaction. Your body becomes used to the medicine. This does NOT mean you are addicted. Addiction is a behavior related to getting and using a drug for a non-medical reason. If you have pain, you have a medical reason to take pain medicine. Your doctor will tell you how much medicine to take. If your doctor wants you to stop the medicine, the dose will be slowly lowered over time to avoid any side effects. You may get drowsy or dizzy. Do not drive, use machinery, or do anything that needs mental alertness until you know how this medicine affects you. Do not stand or sit up quickly, especially if you are an older patient. This reduces the risk of dizzy or fainting spells. Alcohol can increase or decrease the effects of this medicine. Avoid alcoholic drinks. You may have constipation. Try to have a bowel movement at least every 2 to 3 days. If you do not have a bowel movement for 3 days, call your doctor or health director of health care marketing. Your mouth may get dry. Chewing sugarless gum or sucking hard candy, and drinking plenty of water may help. Contact your doctor if the problem does not go away or is severe. You have been given the following additional information: Abdominal Pain, Unknown Cause, (Female) Biliary Colic With Gallstone (Confirmed) Ulcerative Colitis Sucralfate Oral tablet Tramadol Hydrochloride Oral tablet (Electronically signed by Dyan Garcia A.R.N.P. 06/04/2017 17:10)
--- NOTE | 2017-06-04 17:11 | ED MED RECONCILIATION SUMMARY ---
Patient: ZOILA LARKIN Medication Reconciliation Report [facility] VisitID: [id number] [place] [address] 57y, F Registration Date/Time: 06/04/2017 Weight: 68.0 kg Height/Length: 68 in. BMI: 22.8 ALLERGIES: Gluten, Sulfa Antibiotics The patient's Home Medications are listed below: THE FOLLOWING MEDICATIONS NEED TO BE RECONCILED: Albuterol 2 puffs TID Dicyclomine 10mg TID Lialda 1.2g 4 tabs daily tylenol 650mg q 6 hrs Vitamins/Minerals Oral Warfarin Sodium Oral (5 mg) 2 tablets, daily Zyrtec daily 10mg , daily The source(s) of the original Home Medication information: Not obtained. The following Medications were given to the patient in the Emergency Department: IV NS IV Fluids bolus 0, then 1000 mL/hr, administered: 06/04/2017 12:35:00 PM Zofran [IVP] IVP 4 mg, administered: 06/04/2017 12:36:00 PM Toradol [IVP] IVP 30 mg, administered: 06/04/2017 12:38:00 PM Vit K [Subcutaneous] Subcutaneous 10 mg, administered: 06/04/2017 2:32:00 PM The following Medications were prescribed to the patient: Carafate 1 gm tablets: take 1 orally four times daily (1 hour before meals and at bedtime). Dispense sixty (60). No refills. Substitution is permissible. -- Dyan Garcia A.R.NMichelleP. Ultram 50 mg tablets: take 1-2 orally every 6 hours as needed for pain. Dispense twenty (20). No refills. Substitution is permissible. -- Dyan Garcia A.R.N.P.
--- NOTE | 2017-06-04 17:11 | ED MED RECONCILIATION SUMMARY ---
Patient: ZOILA LARKIN Medication Reconciliation Report [facility] VisitID: [id number] [place] [address] 57y, F Registration Date/Time: 06/04/2017 Weight: 68.0 kg Height/Length: 68 in. BMI: 22.8 ALLERGIES: Gluten, Sulfa Antibiotics The patient's Home Medications are listed below: THE FOLLOWING MEDICATIONS NEED TO BE RECONCILED: Albuterol 2 puffs TID Dicyclomine 10mg TID Lialda 1.2g 4 tabs daily tylenol 650mg q 6 hrs Vitamins/Minerals Oral Warfarin Sodium Oral (5 mg) 2 tablets, daily Zyrtec daily 10mg , daily The source(s) of the original Home Medication information: Not obtained. The following Medications were given to the patient in the Emergency Department: IV NS IV Fluids bolus 0, then 1000 mL/hr, administered: 06/04/2017 12:35:00 PM Zofran [IVP] IVP 4 mg, administered: 06/04/2017 12:36:00 PM Toradol [IVP] IVP 30 mg, administered: 06/04/2017 12:38:00 PM Vit K [Subcutaneous] Subcutaneous 10 mg, administered: 06/04/2017 2:32:00 PM The following Medications were prescribed to the patient: Carafate 1 gm tablets: take 1 orally four times daily (1 hour before meals and at bedtime). Dispense sixty (60). No refills. Substitution is permissible. -- Dyan Garcia A.R.NMichelleP. Ultram 50 mg tablets: take 1-2 orally every 6 hours as needed for pain. Dispense twenty (20). No refills. Substitution is permissible. -- Dyan Garcia A.R.N.P.
--- NOTE | 2017-06-04 17:11 | ED MAR SUMMARY ---
..... Medication Administration Record [facility] [address] [place] [address] Patient: ZOILA LARKIN Visit ID: [id number] 57y, F Weight: 68.0 kg Height/Length: 68 in BMI: 22.8 ALLERGIES: Gluten, Sulfa Antibiotics Start 12:35 06/04/2017 Nalini Rodriguez R.N., Stop 14:20 06/04/2017 Adalgisa Yung, Medication Administered: IV NS (SALINE), Dose: IV Fluids over 1 hour(s), Rate: 1000 mL/hr, Dispensed: 1000 mL bag, Site: #1 left AC. Medication Ordered: IV NS : initial bolus 1000 mL (1000 mL/hr), then none - (NOW). Given 12:36 06/04/2017 Nalini Rodriguez R.N. Medication Administered: ZOFRAN [IVP] (ONDANSETRON HCL), Dose: 4 mg IVP over 1 minute(s), Site: #1 left AC. Medication Ordered: Zofran IV 4 mg (NOW). Given 12:38 06/04/2017 Nalini Rodriguez R.N. Medication Administered: TORADOL [IVP], Dose: 30 mg IVP over 1 minute(s), Site: #1 left AC. Medication Ordered: Toradol IV 30 mg (NOW). Given 14:32 06/04/2017 Adalgisa Yung, Medication Administered: VIT K [SUBCUTANEOUS] (VITAMIN K1), Dose: 10 mg Subcutaneous. Medication Ordered: Vit K Subcut 10 mg (NOW).
--- NOTE | 2017-06-04 17:11 | ED MAR SUMMARY ---
..... Medication Administration Record [facility] [address] [place] [address] Patient: ZOILA LARKIN Visit ID: [id number] 57y, F Weight: 68.0 kg Height/Length: 68 in BMI: 22.8 ALLERGIES: Gluten, Sulfa Antibiotics Start 12:35 06/04/2017 Nalini Rodriguez R.N., Stop 14:20 06/04/2017 Adalgisa Yung, Medication Administered: IV NS (SALINE), Dose: IV Fluids over 1 hour(s), Rate: 1000 mL/hr, Dispensed: 1000 mL bag, Site: #1 left AC. Medication Ordered: IV NS : initial bolus 1000 mL (1000 mL/hr), then none - (NOW). Given 12:36 06/04/2017 Nalini Rodriguez R.N. Medication Administered: ZOFRAN [IVP] (ONDANSETRON HCL), Dose: 4 mg IVP over 1 minute(s), Site: #1 left AC. Medication Ordered: Zofran IV 4 mg (NOW). Given 12:38 06/04/2017 Nalini Rodriguez R.N. Medication Administered: TORADOL [IVP], Dose: 30 mg IVP over 1 minute(s), Site: #1 left AC. Medication Ordered: Toradol IV 30 mg (NOW). Given 14:32 06/04/2017 Adalgisa Yung, Medication Administered: VIT K [SUBCUTANEOUS] (VITAMIN K1), Dose: 10 mg Subcutaneous. Medication Ordered: Vit K Subcut 10 mg (NOW).
== END 2017-06-04 15:00 | disposition home or self-care (01) ==
LOC: ED SRH 12:14
DX: K51.90 Ulcerative colitis, unspecified, without complications (principal); K80.20 Calculus of gallbladder without cholecystitis without obstruction; R10.11 Right upper quadrant pain; Z88.2 Allergy status to sulfonamides
CPT/HCPCS: 90100; 92235; 92530; 94001; 94060; 95059